=== PATIENT | female | born 1970 | race Caucasian/White ===

== ENCOUNTER 2024-10-06 15:30 | Inpatient (IN) | payer OTHER ==
[2024-10-06 16:32] VITALS: BMI 26.7
[2024-10-06] MEDS ORDERED: ONDANSETRON *ODT* 4 MG TABLET SL PRN (16:57)
[2024-10-06] MEDS ORDERED: NALOXONE (NARCAN) HCL 4 MG/0.1 ML SPRAY NS PRN (16:57)
[2024-10-06] MEDS ORDERED: MAGNESIUM HYDROX 2400MG/30ML ORAL SUSPENSION 30 ML CUP PO PRN (16:57)
[2024-10-06] MEDS ORDERED: DICYCLOMINE HCL 10 MG CAPSULE PO PRN (16:57)
[2024-10-06] MEDS ORDERED: chlordiazePOXIDE HCL 25 MG CAPSULE PO PRN (16:57)
[2024-10-06] MEDS ORDERED: ACETAMINOPHEN 325 MG TABLET (FP) PO PRN (16:57)
[2024-10-06] MEDS ORDERED: BENZONATATE 200 MG CAPSULE PO PRN (16:57)
[2024-10-06] MEDS ORDERED: NICOTINE POLACRILEX 2 MG GUM BUC PRN (16:57)
[2024-10-06] MEDS ORDERED: IBUPROFEN 400 MG TABLET (FP) PO PRN (16:57)
[2024-10-06] MEDS ORDERED: MAG HYDROX/AL HYDROX/SIMETH 30 ML UNIT-DOSE CUP PO PRN (16:57)
[2024-10-06] MEDS ORDERED: LOPERAMIDE HCL 2 MG CAPSULE PO PRN (16:57)
[2024-10-06] MEDS ORDERED: BENZOCAINE/MENTHOL (CHLORASEPTIC ) LOZENGE MM PRN (16:57)
[2024-10-06] MEDS ORDERED: POLYETHYLENE GLYCOL (HEALTHYLAX) 3350 17 GM PACKET PO PRN (16:57)
[2024-10-06] MEDS ORDERED: hydrOXYzine PAMOATE 25 MG CAPSULE (FP) PO PRN (16:57)
[2024-10-06] MEDS ORDERED: guaiFENesin 600 MG TABLET.ER (FP) PO PRN (16:57)
[2024-10-06] MEDS ORDERED: BISMUTH SUBSALICYLATE 524 MG/30 ML PO PRN (16:57)
[2024-10-06] MEDS ORDERED: chlordiazePOXIDE HCL 25 MG CAPSULE ONE (18:18)
[2024-10-06] MEDS: chlordiazePOXIDE HCL 25 MG CAPSULE PO SCH (18:20)
[2024-10-06] MEDS: IBUPROFEN 600 MG TABLET (FP) PO PRN (19:47)
[2024-10-06] MEDS: THIAMINE 100 MG TABLET PO SCH (22:17)
[2024-10-06] MEDS: MELATONIN 5 MG TABLETS PO SCH (22:17)
[2024-10-06] MEDS: levETIRAcetam 500 MG TABLET (FP) PO SCH (22:17)
[2024-10-06] MEDS: CEPHALEXIN MONOHYDRATE 250 MG CAPSULE (FP) PO SCH (22:18)
[2024-10-06] MEDS: GABAPENTIN 100 MG CAPSULE PO SCH (22:18)
[2024-10-06] MEDS: METHOCARBAMOL 500 MG TABLET PO PRN (22:19)
[2024-10-07] MEDS: NICOTINE 14 MG/24 HOURS TOPICAL PATCH TD SCH (10:13)
[2024-10-07] MEDS: PRENATAL VITAMINS W/ FOLIC ACID TABLET (FP) PO SCH (10:17)
[2024-10-07] MEDS: CEPHALEXIN MONOHYDRATE 500 MG PO SCH (10:39)
[2024-10-07] MEDS: SERTRALINE HCL 50 MG TABLET (FP) PO SCH (10:57)
[2024-10-07] MEDS: CEPHALEXIN MONOHYDRATE PO SCH (10:57)
[2024-10-07 11:14] LABS: HEMATOCRIT 35.1 % (34.1-44.9); HEMOGLOBIN 11.2 g/dL (11.2-15.7); MCHC 31.9 g/dl (32.2-35.5); MEAN CELL VOLUME 98.9 fl (79.4-94.8); MEAN PLT VOLUME 9.8 fl (9.4-12.3); PLATELET COUNT 126 x10^3/uL (182-369); RDW 13.9 % (12.3-16.6)
[2024-10-07 11:20] LABS: CHLORIDE 108 mmol/L (98-107); POTASSIUM 3.9 mmol/L (3.5-5.1); SODIUM 140 mmol/L (136-145)
[2024-10-07 11:45] LABS: CALCIUM 9.3 mg/dL (8.5-10.1)
[2024-10-07 11:46] LABS: ALBUMIN 3.1 g/dl (3.4-5.0); ANION GAP 7 mmol/L (4-13); BLOOD UREA NITROGEN 19.1 mg/dL (7-18); CO2 25 mmol/L (21-32); GLUCOSE,RANDOM 114 mg/dL (74-106)
[2024-10-07 11:49] LABS: CREATININE 0.6 mg/dL (0.55-1.3); SGOT/AST 18 U/L (15-37); SGPT/ALT 20 U/L (13-61)
[2024-10-07 11:50] LABS: BILIRUBIN,TOTAL 0.4 mg/dL (0.2-1); TOT PROT 5.7 g/dl (6.4-8.2)
[2024-10-07 11:52] LABS: ALK PHOS 127 U/L (45-117)
[2024-10-07] MEDS: GABAPENTIN 300 MG CAPSULE PO SCH (13:26)
[2024-10-07] MEDS: QUEtiapine FUMARATE 50 MG TABLET PO SCH (22:24)
[2024-10-08] MEDS: chlordiazePOXIDE HCL 25 MG CAPSULE PO SCH (05:50)
[2024-10-08] MEDS: PATIENT'S OWN MEDICATION (NON-FORMULARY) (Omeprazole [Omeprazole] 20 MG Tablet.Dr) PO SCH (09:56)
[2024-10-09] MEDS ORDERED: chlordiazePOXIDE HCL 10 MG CAPSULE PO PRN
[2024-10-09] MEDS: chlordiazePOXIDE HCL 10 MG CAPSULE PO SCH (06:05)
[2024-10-10] MEDS: chlordiazePOXIDE HCL 10 MG CAPSULE PO ONE (06:37)
[2024-10-10] MEDS: chlordiazePOXIDE HCL 10 MG CAPSULE PO SCH (07:06)
[2024-10-10 09:58] LABS: ABSOLUTE IMMATURE GRANULOCYTES 0.01 x10^3/uL (0.0-0.031); BASOPHILS # 0.03 x10^3/uL (0.01-0.08); EOSINOPHIL % 1.4 % (0.7-5.8); EOSINOPHILS # 0.04 x10^3/uL (0.04-0.36); HEMATOCRIT 37.5 % (34.1-44.9); HEMOGLOBIN 11.8 g/dL (11.2-15.7); MCHC 31.5 g/dl (32.2-35.5); MEAN CELL VOLUME 98.7 fl (79.4-94.8); MEAN PLT VOLUME 9.4 fl (9.4-12.3); MONOCYTE # 0.26 x10^3/uL (0.24-0.86); MONOCYTE % 8.8 % (4.7-12.5); PLATELET COUNT 194 x10^3/uL (182-369); RDW 13.5 % (12.3-16.6)
[2024-10-10] MEDS: NALTREXONE HCL 50 MG TABLET PO ONE (15:17)
[2024-10-11 09:56] VITALS: RESP 18
[2024-10-11] MEDS: NALTREXONE HCL 50 MG TABLET PO SCH (10:00)
[2024-10-11 13:03] VITALS: BP 107/72; PULSE 87; TEMP 97.6
== END 2024-10-11 13:20 | disposition other institution (70) | DRG 774 ==
LOC: YASAS 15:30 → Y6N 18:15
PROVIDERS: ADMIT Allergy & Immunology; ATTEND Allergy & Immunology
PROC: HZ2ZZZZ Detoxification Services for Substance Abuse Treatment (ICD-10-PCS; principal; 2024-10-06)
DX: F10.230 Alcohol dependence with withdrawal, uncomplicated (principal); F14.20 Cocaine dependence, uncomplicated; F17.210 Nicotine dependence, cigarettes, uncomplicated; F33.1 Major depressive disorder, recurrent, moderate; F43.10 Post-traumatic stress disorder, unspecified; D72.819 Decreased white blood cell count, unspecified; G62.9 Polyneuropathy, unspecified; M54.41 Lumbago with sciatica, right side; M54.42 Lumbago with sciatica, left side; G89.29 Other chronic pain; Z62.810 Personal history of physical and sexual abuse in childhood; Z91.410 Personal history of adult physical and sexual abuse; Z63.8 Other specified problems related to primary support group; Z63.0 Problems in relationship with spouse or partner; Z56.0 Unemployment, unspecified; Z59.00 Homelessness unspecified
CPT/HCPCS: 36415; 80053; 80305; 80307; 81025; 85025; 85027; 86780; 87811; 93005; 93010

== ENCOUNTER 2024-11-28 11:19 | Inpatient (IN) | payer OTHER ==
[2024-11-28 11:47] VITALS: BMI 27.5
[2024-11-28] MEDS ORDERED: BISMUTH SUBSALICYLATE 524 MG/30 ML PO PRN (12:07)
[2024-11-28] MEDS ORDERED: BENZONATATE 200 MG CAPSULE PO PRN (12:07)
[2024-11-28] MEDS ORDERED: MAG HYDROX/AL HYDROX/SIMETH 30 ML UNIT-DOSE CUP PO PRN (12:07)
[2024-11-28] MEDS ORDERED: MAGNESIUM HYDROX 2400MG/30ML ORAL SUSPENSION 30 ML CUP PO PRN (12:07)
[2024-11-28] MEDS ORDERED: BENZOCAINE/MENTHOL (CHLORASEPTIC ) LOZENGE MM PRN (12:07)
[2024-11-28] MEDS ORDERED: NICOTINE POLACRILEX 2 MG GUM BUC PRN (12:07)
[2024-11-28] MEDS ORDERED: guaiFENesin 600 MG TABLET.ER (FP) PO PRN (12:07)
[2024-11-28] MEDS ORDERED: IBUPROFEN 600 MG TABLET (FP) PO PRN (12:07)
[2024-11-28] MEDS ORDERED: NALOXONE (NARCAN) HCL 4 MG/0.1 ML SPRAY NS PRN (12:07)
[2024-11-28] MEDS ORDERED: IBUPROFEN 400 MG TABLET (FP) PO PRN (12:07)
[2024-11-28] MEDS ORDERED: POLYETHYLENE GLYCOL (HEALTHYLAX) 3350 17 GM PACKET PO PRN (12:07)
[2024-11-28] MEDS ORDERED: LOPERAMIDE HCL 2 MG CAPSULE PO PRN (12:07)
[2024-11-28] MEDS ORDERED: ACETAMINOPHEN 325 MG TABLET (FP) PO PRN (12:07)
[2024-11-28] MEDS ORDERED: ONDANSETRON *ODT* 4 MG TABLET SL PRN (12:07)
[2024-11-28] MEDS ORDERED: hydrOXYzine PAMOATE 25 MG CAPSULE (FP) PO PRN (12:07)
[2024-11-28] MEDS ORDERED: DICYCLOMINE HCL 10 MG CAPSULE PO PRN (12:07)
[2024-11-28] MEDS ORDERED: levETIRAcetam 500 MG TABLET (FP) PO ONE (12:44)
[2024-11-28] MEDS: levETIRAcetam 500 MG TABLET (FP) PO SCH (12:45)
[2024-11-28] MEDS: chlordiazePOXIDE HCL 25 MG CAPSULE PO PRN (13:10)
[2024-11-28] MEDS: GABAPENTIN 300 MG CAPSULE PO SCH (13:17)
[2024-11-28] MEDS: PANTOPRAZOLE 20 MG TABLET PO SCH (13:18)
[2024-11-28] MEDS: chlordiazePOXIDE HCL 25 MG CAPSULE PO SCH (17:22)
[2024-11-28] MEDS: THIAMINE 100 MG TABLET PO SCH (22:07)
[2024-11-28] MEDS: MELATONIN 5 MG TABLETS PO SCH (22:07)
[2024-11-29] MEDS: PRENATAL VITAMINS W/ FOLIC ACID TABLET (FP) PO SCH (11:21)
[2024-11-29] MEDS: NICOTINE 14 MG/24 HOURS TOPICAL PATCH TD SCH (11:22)
[2024-11-29 12:49] LABS: CHLORIDE 107 mmol/L (98-107); POTASSIUM 3.9 mmol/L (3.5-5.1); SODIUM 140 mmol/L (136-145)
[2024-11-29 12:55] LABS: HEMATOCRIT 40.5 % (34.1-44.9); MCHC 32.1 g/dl (32.2-35.5); MEAN CELL VOLUME 97.8 fl (79.4-94.8); MEAN PLT VOLUME 10.1 fl (9.4-12.3); PLATELET COUNT 132 x10^3/uL (182-369); RDW 14.3 % (12.3-16.6)
[2024-11-29 12:58] LABS: ALBUMIN 3.1 g/dl (3.4-5.0)
[2024-11-29 12:59] LABS: ANION GAP 5 mmol/L (4-13); BLOOD UREA NITROGEN 11.7 mg/dL (7-18); CALCIUM 9.1 mg/dL (8.5-10.1); CO2 29 mmol/L (21-32); GLUCOSE,RANDOM 93 mg/dL (74-106)
[2024-11-29 13:01] LABS: SGOT/AST 22 U/L (15-37); SGPT/ALT 22 U/L (13-61)
[2024-11-29 13:02] LABS: CREATININE 0.7 mg/dL (0.55-1.3)
[2024-11-29 13:03] LABS: BILIRUBIN,TOTAL 0.3 mg/dL (0.2-1); TOT PROT 5.8 g/dl (6.4-8.2)
[2024-11-29 13:04] LABS: ALK PHOS 134 U/L (45-117)
[2024-11-29] MEDS: QUEtiapine FUMARATE 50 MG TABLET PO SCH (22:43)
[2024-11-29] MEDS: METHOCARBAMOL 500 MG TABLET PO PRN (22:44)
[2024-11-30] MEDS: chlordiazePOXIDE HCL 25 MG CAPSULE PO SCH (05:44)
[2024-12-01] MEDS ORDERED: chlordiazePOXIDE HCL 10 MG CAPSULE PO PRN
[2024-12-01] MEDS: chlordiazePOXIDE HCL 10 MG CAPSULE PO SCH (05:51)
[2024-12-01 13:40] VITALS: BP 127/73; PULSE 106; RESP 15; TEMP 97.8
[2024-12-02] MEDS ORDERED: chlordiazePOXIDE HCL 10 MG CAPSULE PO SCH (05:00)
[2024-12-03] MEDS ORDERED: chlordiazePOXIDE HCL 10 MG CAPSULE PO ONE (05:00)
== END 2024-12-01 14:40 | disposition home or self-care (01) | DRG 774 ==
LOC: YASAS 11:19 → Y6N 12:29
PROVIDERS: ADMIT Family Medicine; ATTEND Family Medicine
PROC: HZ2ZZZZ Detoxification Services for Substance Abuse Treatment (ICD-10-PCS; principal; 2024-11-28)
DX: F10.230 Alcohol dependence with withdrawal, uncomplicated (principal); F14.20 Cocaine dependence, uncomplicated; F17.210 Nicotine dependence, cigarettes, uncomplicated; F19.24 Other psychoactive substance dependence with psychoactive substance-induced mood disorder; F33.9 Major depressive disorder, recurrent, unspecified; F43.10 Post-traumatic stress disorder, unspecified; G60.9 Hereditary and idiopathic neuropathy, unspecified; G47.00 Insomnia, unspecified; M54.41 Lumbago with sciatica, right side; M54.42 Lumbago with sciatica, left side; Z62.810 Personal history of physical and sexual abuse in childhood; Z91.410 Personal history of adult physical and sexual abuse; Z63.8 Other specified problems related to primary support group; Z63.0 Problems in relationship with spouse or partner
CPT/HCPCS: 36415; 80053; 80305; 80307; 81025; 85027; 86780; 93005; 93010